=== PATIENT | male | born 1980 | race Caucasian/White ===

== ENCOUNTER 2021-07-21 18:30 | Emergency (ER) | payer SELFPAY ==
[~2021-07-21] VITALS: Ht 170.2 cm; Wt 61.9 kg
[~2021-07-21 18:30] MED LIST: ALPRAZOLAM0.5 MG PO; NAPROXEN500 MG PO; NORCO 5-325 TA1 EACH PO; VISTARIL25 MG PO; XANAX0.5 MG PO
--- NOTE | 2021-07-22 18:58 | EKG ---
[facility] [address] [facility] [place] [address] Signed Normal sinus rhythm Normal ECG No previous ECGs available Confirmed by TERRA ALANIS MD ([id number] on 07/22/2021 6:58:10 PM Electronically Signed By: TERRA ALANIS MD 07/22/21 1858 PATIENT NAME: GIOVANNIJOSEPH Electrocardiogram DATE OF : 84 PHYSICIAN: TERRA ALANIS MD REPORT #: [id number] REPORT IS CONFIDENTIAL AND NOT TO BE RELEASED WITHOUT AUTHORIZATION
== END 2021-07-21 20:30 | disposition left against medical advice (07) ==
LOC: ED 18:30
DX: R07.9 Chest pain, unspecified (principal); F17.200 Nicotine dependence, unspecified, uncomplicated; Z79.899 Other long term (current) drug therapy
CPT/HCPCS: 71045; 80053; 83735; 84484; 85025; 93005; 93010; 99285-25

== ENCOUNTER 2022-04-13 12:24 | Emergency (ER) | payer OTHER ==
[~2022-04-13] VITALS: Ht 170.2 cm; Wt 61.1 kg
[2022-04-13] MEDS ORDERED: DOXYCYCLINE HY100 MG PO (13:53)
[2022-04-13] MEDS ORDERED: EPIN0.3P IM (13:53)
[2022-04-13] MEDS ORDERED: VISTARIL25 MG PO (13:53)
== END 2022-04-13 14:00 | disposition home or self-care (01) ==
LOC: ED 12:24
DX: T63.441A Toxic effect of venom of bees, accidental (unintentional), initial encounter (principal); F17.200 Nicotine dependence, unspecified, uncomplicated; Z91.030 Bee allergy status
CPT/HCPCS: 99282

== ENCOUNTER 2022-04-23 07:07 | Emergency (ER) | payer OTHER ==
[~2022-04-23] VITALS: Ht 170.2 cm; Wt 60.8 kg
[~2022-04-23 07:07] MED LIST changes: +DOXYCYCLINE HY100 MG PO; +EPIN0.3P IM
--- OUTSIDE RECORDS SUMMARY | 2022-04-23 07:10 | XMS ---
PreManage Notification: JOSEPH DAVILA [employer] Events 2 event(s) in the past 18 months Most recent security events: Elopement at [facility] 03/28/2022 17:14 - Patient eloped before treatment completed. - Patient with suicidal and/or homicidal ideations eloped. - Patient eloped with IV in place. Details: PATIENT LWBS Elopement at [facility] 07/21/2021 18:31 - Other Details: PATIENT LEFT AMA CRITERIA MET - [facility] - 2 Visits in 30 Days CARE PROVIDERS There are no care providers on record at this time. Linh has no Care Guidelines for this patient. Nic. VISIT COUNT (12 MO.) 4 [facility]. TOTAL 4 NOTE: Visits indicate total known visits. ED/UCC VISIT TRACKING (12 MO.) 04/23/2022 07:08 [facility] TYPE: Emergency COMPLAINT: - DENTAL PROBLEM 04/13/2022 12:24 [facility] TYPE: Emergency COMPLAINT: - BEE STING DIAGNOSES: - Other specified soft tissue disorders - Nicotine dependence, unspecified, uncomplicated - Toxic effect of venom of bees, accidental (unintentional), initial encounter - Bee allergy status 03/28/2022 17:14 [facility] TYPE: Emergency COMPLAINT: - POSS DEHYDRATION 07/21/2021 18:31 [facility] TYPE: Emergency COMPLAINT: - CHEST PAIN DIAGNOSES: - Other longterm (current) drug therapy - Chest pain, unspecified - Nicotine dependence, unspecified, uncomplicated INPATIENT VISIT TRACKING (12 MO.) No inpatient visits to display in this time frame [id number]
[2022-04-23] MEDS ORDERED: PERCOCET 7.5-31 EACH PO (08:35)
[2022-04-23] MEDS ORDERED: ONDANSETRON ODT8 MG PO (08:37)
== END 2022-04-23 08:51 | disposition home or self-care (01) ==
LOC: ED 07:07
DX: K08.89 Other specified disorders of teeth and supporting structures (principal); F17.200 Nicotine dependence, unspecified, uncomplicated
CPT/HCPCS: 99282; A9270

== ENCOUNTER 2024-09-03 20:07 | Emergency (ER) | payer OTHER ==
[~2024-09-03] VITALS: Ht 170.2 cm; Wt 63.5 kg
[~2024-09-03 20:07] MED LIST changes: +ONDANSETRON ODT8 MG PO; +PERCOCET 7.5-31 EACH PO
[2024-09-03 20:27] LABS: BASOPHILS 0.5 % (0-2); EOSINOPHILS 3.8 % (0-6); HEMATOCRIT 43.6 % (35.0-50.0); HEMOGLOBIN 14.5 g/dL (12.0-18.0); LYMPHOCYTES 26.8 % (24-44); MCH 29.9 (27-36); MCHC 33.2 g/dl (30-36); MONOCYTES 10.7 % (0-12); NEUTROPHILS 58.2 % (39-80); PLATELET COUNT 254 K/uL (140-440); RBC 4.84 M/ul (4.3-5.7); RDW 13.6 (10.5-15.0)
[2024-09-03] MEDS ORDERED: ondansetron HCL 4 MG/2 ML VIAL IV ONE (20:30)
[2024-09-03 20:41] LABS: ALBUMIN 3.8 g/dL (3.4-5.0); ALBUMIN/GLOBULIN RATIO 1.09 (1.1-2.4); ANION GAP 8.6 (7-21); BILIRUBIN, TOTAL 0.5 ng/dL (0.2-1.0); BUN/CREATININE RATIO 20.58 (6.0-28.6); CALCIUM 8.5 mg/dL (8.5-10.1); CREATININE, SERUM 1.02 mg/dL (0.70-1.30); MAGNESIUM 1.4 mg/dL (1.8-2.4); POTASSIUM 3.6 mmol/L (3.5-5.1); PROTEIN, TOTAL 7.3 g/dL (6.4-8.2)
[2024-09-03] MEDS ORDERED: LACTATED RINGER'S 1,000 ML IV ONE (20:45)
[2024-09-03] MEDS ORDERED: FAMOTIDINE 20 MG/ 2 ML VIAL IV ONE (20:45)
[2024-09-03] MEDS ORDERED: MAGNESIUM OXIDE 400 MG TABLET PO ONE (20:45)
[2024-09-03] MEDS ORDERED: MULTIVITAMINS 10 ML,FOLIC ACID 1 MG,THIAMINE HCL 100 MG in SODIUM CHLORIDE 0.9% 1,000 ML IV ONE (21:00)
[2024-09-03 21:46] LABS: BILIRUBIN, URINE NEGATIVE (negative); BLOOD/HGB, URINE NEGATIVE (Negative); KETONE, URINE NEGATIVE (Negative); LEUK ESTERASE, URINE NEGATIVE (negative); NITRITE, URINE NEGATIVE (negative)
[2024-09-03 22:01] LABS: AMPHETAMINES, URINE POSITIVE (NEGATIVE); BARBITURATES, URINE NEGATIVE (NEGATIVE); BENZODIAZEPINE, URINE NEGATIVE (NEGATIVE); BUPRENORPHINE, URINE NEGATIVE (NEGATIVE); CANNABINOID, URINE POSITIVE (NEGATIVE); COCAINE, URINE NEGATIVE (NEGATIVE); ECSTASY, URINE POSITIVE (NEGATIVE); FENTANYL, URINE NEGATIVE (NEGATIVE); METHADONE, URINE NEGATIVE (NEGATIVE); OPIATES, URINE NEGATIVE (NEGATIVE); OXYCODONE, URINE NEGATIVE (NEGATIVE); PHENCYCLIDINE, URINE NEGATIVE (NEGATIVE)
[2024-09-03 22:15] VITALS: BP 130/90
[2024-09-03] MEDS ORDERED: ONDANSETRON 4 MG HOME.PACK SL ONE (22:15)
== END 2024-09-03 22:16 | disposition home or self-care (01) ==
LOC: ED 20:07
PROVIDERS: Internal Medicine
DX: A08.4 Viral intestinal infection, unspecified (principal); F17.200 Nicotine dependence, unspecified, uncomplicated; Z91.030 Bee allergy status
CPT/HCPCS: 36415; 80053; 80307; 81003; 83735; 85025; A9270; J2405; J7121

== ENCOUNTER 2024-10-16 21:35 | Emergency (ER) | payer OTHER ==
[~2024-10-16] VITALS: Ht 170.2 cm; Wt 64.9 kg
[2024-10-16] MEDS ORDERED: SODIUM CHLORIDE 0.9% 1,000 ML IV ONE (22:00)
[2024-10-16] MEDS ORDERED: MORPHINE SULFATE 4 MG/ML VIAL IV ONE (22:00)
[2024-10-16] MEDS ORDERED: ondansetron HCL 4 MG/2 ML VIAL IV ONE (22:00)
[2024-10-16 22:13] LABS: BASOPHILS 0.3 % (0-2); EOSINOPHILS 0.3 % (0-6); HEMATOCRIT 42.5 % (35.0-50.0); HEMOGLOBIN 14.7 g/dL (12.0-18.0); LYMPHOCYTES 22.1 % (24-44); MCH 30.5 (27-36); MCHC 34.7 g/dl (30-36); MCV 87.9 fl (81-99); MONOCYTES 15.7 % (0-12); NEUTROPHILS 61.6 % (39-80); PLATELET COUNT 240 K/uL (140-440); RBC 4.83 M/ul (4.3-5.7); RDW 13.6 (10.5-15.0)
[2024-10-16 22:29] LABS: ALBUMIN 3.8 g/dL (3.4-5.0); ALBUMIN/GLOBULIN RATIO 1.19 (1.1-2.4); ANION GAP 11.1 (7-21); BILIRUBIN, TOTAL 1.1 mg/dL (0.2-1.0); BUN/CREATININE RATIO 11.96 (6.0-28.6); CALCIUM 8.8 mg/dL (8.5-10.1); CREATININE, SERUM 1.17 mg/dL (0.70-1.30); POTASSIUM 3.1 mmol/L (3.5-5.1)
[2024-10-16] MEDS ORDERED: POTASSIUM CHLORIDE 10 MEQ TABCR PO ONE (22:45)
[2024-10-16] MEDS ORDERED: LIDOCAINE & ANTACID 35 ML BTL PO ONE (23:30)
[2024-10-17] MEDS ORDERED: ONDANSETRON ODT8 MG PO (00:12)
[2024-10-17] MEDS ORDERED: LOMOTIL TABLET1 EACH PO (00:12)
[2024-10-17] MEDS ORDERED: TRAMADOL HCL50 MG PO (00:14)
[2024-10-17] MEDS ORDERED: DIPHENOXYLATE/ATROPINE 1 EA TAB PO ONE (00:15)
[2024-10-17] MEDS ORDERED: TRAMADOL HCL 50 MG HOME.PACK PO ONE (00:30)
[2024-10-17] MEDS ORDERED: ONDANSETRON 4 MG HOME.PACK SL ONE (00:30)
[2024-10-17] MEDS ORDERED: DIPHENOXYLATE/ATROPINE 1 EA TAB ONE (00:32)
[2024-10-17 00:52] VITALS: BP 105/52
== END 2024-10-17 00:53 | disposition home or self-care (01) ==
LOC: ED 21:35
PROVIDERS: Family Medicine
DX: A08.4 Viral intestinal infection, unspecified (principal); K86.2 Cyst of pancreas
CPT/HCPCS: 36415; 74177; 76705; 80053; 80307; 83605; 83690; 85025; 96361; 96375; 99284-25; A9270; J2270; J2405; J7030; Q9967

== ENCOUNTER 2025-02-09 15:21 | Emergency (ER) | payer OTHER ==
[~2025-02-09] VITALS: Ht 170.2 cm; Wt 65.0 kg
[~2025-02-09 15:21] MED LIST changes: +LOMOTIL TABLET1 EACH PO; +TRAMADOL HCL50 MG PO
[2025-02-09] MEDS ORDERED: CEPHALEXIN500 M1 PO (17:41)
[2025-02-09] MEDS ORDERED: BACTRIM DS TAB1 EACH PO (17:41)
[2025-02-09] MEDS ORDERED: TRIMETHOPRIM/SULFAMETHOXAZOLE 1 EA HOME.PACK PO ONE (17:45)
[2025-02-09] MEDS ORDERED: CEPHALEXIN MONOHYDRATE 500 MG HOME.PACK PO ONE (17:45)
[2025-02-09] MEDS ORDERED: TRIMETHOPRIM/SULFAMETHOXAZOLE 1 EA TAB PO ONE (17:45)
[2025-02-09] MEDS ORDERED: CEPHALEXIN MONOHYDRATE 500 MG CAP PO ONE (17:45)
[2025-02-09 18:24] VITALS: BP 124/84
== END 2025-02-09 18:24 | disposition home or self-care (01) ==
LOC: ED 15:21
DX: L03.116 Cellulitis of left lower limb (principal); F17.200 Nicotine dependence, unspecified, uncomplicated; Z91.030 Bee allergy status
CPT/HCPCS: 73560; 99283; A9270